=== PATIENT | male | born 1955 | race Caucasian/White ===

== ENCOUNTER → 2017-05-20 | Outpatient (REF) | payer MEDICARE ==
[2017-05-20 13:24] LABS: RHEUMATOID FACTOR QUANT < 10.0 IU/ML (0-15.0)
[2017-05-20 13:24] LABS: C REACTIVE PROTEIN QUANTITATIV 9.34 MG/DL (0.00-0.30)
[2017-05-20 13:47] LABS: ERYTHROCYTE SEDIMENTATION RATE 70 mm/hr (0-20)
== END ==
LOC: M LABDRAW1 12:09
DX: M54.5 Low back pain (principal)
CPT/HCPCS: 86140

== ENCOUNTER 2017-05-27 09:59 | Inpatient (IN) | payer MEDICARE ==
[2017-05-27 10:38] LABS: HEMATOCRIT 31.2 % (42.0-52.0); MEAN CORPUSCULAR HEMOGLOBIN 28.6 pg (27.0-33.0); MEAN CORPUSCULAR HGB CONC 32.1 g/dl (32.0-36.5); MEAN CORPUSCULAR VOLUME 89.1 fl (80.0-96.0); PLATELET COUNT, AUTOMATED 292 10^3/uL (150-450); RED CELL DISTRIBUTION WIDTH 17.9 % (11.5-14.5)
[2017-05-27 10:50] LABS: ADD MANUAL DIFFER YES; DIFF SLIDE NUMBER 174; POS COUNT POS FLAG; POSITIVE MORPH POS FLAG
[2017-05-27 10:51] LABS: ALBUMIN/GLOBULIN RATIO 0.64 (1.00-1.93); ALKALINE PHOSPHATASE 304 U/L (45-117); ALT/SGPT 12 U/L (12-78); ANION GAP 20 MEQ/L (8-16); AST/SGOT 42 U/L (7-37); BILIRUBIN,DIRECT 0.1 MG/DL (0.0-0.2); BILIRUBIN,TOTAL 0.3 MG/DL (0.2-1.0); CALCIUM LEVEL 9.2 MG/DL (8.8-10.2); CARBON DIOXIDE LEVEL 9 MEQ/L (21-32); CHLORIDE LEVEL 106 MEQ/L (98-107); CPK CREATINE PHOSPHOKINASE 667 U/L (39-308); GLOMERULAR FILTRATION RATE 3.5 (>49); GLUCOSE, FASTING 109 MG/DL (80-110); SODIUM LEVEL 135 MEQ/L (136-145); TOTAL PROTEIN 7.7 GM/DL (6.4-8.2); TROPONIN I < 0.02 NG/ML (< 0.10)
[2017-05-27 10:59] LABS: CK-MB VALUE MASS 9.4 NG/ML (0.0-3.6); NT-PRO BNP 19584 PG/ML (<125)
[2017-05-27 11:06] LABS: BLOOD UREA NITROGEN 199 MG/DL (7-18)
[2017-05-27 11:10] LABS: POTASSIUM SERUM 7.7 MEQ/L (3.5-5.1)
[2017-05-27 11:17] LABS: AMMONIA 24 uMOL/L (<32)
[2017-05-27 11:21] LABS: LACTIC ACID SEPSIS PROTOCOL 1.1 MMOL/L (0.4-2.0)
[2017-05-27 11:23] LABS: INR 1.68; PROTHROMBIN TIME 20.3 SECONDS (12.4-14.5)
[2017-05-27 11:24] LABS: PARTIAL THROMBOPLASTIN TIME 29.8 SECONDS (26.8-37.9)
[2017-05-27 11:29] LABS: ETHYL ALCOHOL (ETHANOL) 0.004 % (0.000-0.010)
[2017-05-27 11:29] LABS: SALICYLATE LEVEL 2.2 MG/DL (5.0-30.0)
[2017-05-27] MEDS ORDERED: CALCIUM CHLORIDE 10% 1 GM in D5W 100 ML IV (11:30)
[2017-05-27 11:31] LABS: ACETAMINOPHEN LEVEL < 2.0 UG/ML (10.0-30.0)
[2017-05-27] MEDS: CALCIUM CHLORIDE 10% 1 GM in D5W 100 ML IV (11:33)
[2017-05-27] MEDS: DEXTROSE 50% 50 ML SYRINGE IV (11:33)
[2017-05-27 11:34] LABS: ANISOCYTOSIS 1+; ATYPICAL LYMPH 4 % (0-5); BANDS 1 % (< 11); EOSINOPHILS 2 % (0-5); LYMPHOCYTES 9 % (16-52); METAMYELOCYTES 2 % (0-0); MONOCYTES 9 % (0-8); MYELOCYTES 1 % (0-0); NEUTROPHILS 72 % (35-75); PLATELET ESTIMATE NORMAL (NORMAL); POLYCHROMASIA 1+
[2017-05-27] MEDS: HumuLIN R (REGULAR) INSULIN (NovoLIN R) **100U/ML** PER UNIT IV (11:34)
[2017-05-27] MEDS: SOD POLYSTYRENE SULFONATE SUSP 15 GM/60 ML UD PO (11:34)
[2017-05-27] MEDS: NS 1,000 ML IV (11:35)
[2017-05-27 11:49] LABS: ABG BASE EXCESS -21.8 (-2.0-2.0); ABG HCO3 5.9 MEQ/L (22.0-26.0); ABG O2 SATURATION 96.4 % (95.0-99.0); ABG PARTIAL PRESSURE O2 96.9 mmHg (75.0-100.0); ABG STANDARD HCO3 8.4 MEQ/L (22.0-26.0); ABG TOTAL CO2 6.5 MEQ/L (23.0-31.0)
[2017-05-27 11:54] LABS: ABG PARTIAL PRESSURE CO2 19.2 mmHg (35.0-45.0); ABG pH (ARTERIAL) 7.106 UNITS (7.350-7.450)
[2017-05-27] MEDS: SODIUM BICARBONATE 8.4% INJ 50 ML SYRINGE IV ×3 (12:34→15:10)
[2017-05-27 12:36] LABS: KETONE, URINE AUTO RFX TRACE mg/dL (NEGATIVE); LEUKOCYTE ESTERASE UR AUTO RFX NEGATIVE (NEGATIVE); MUCUS, URINE RFX SMALL (NEGATIVE); NITRITE, URINE AUTO RFX NEGATIVE (NEGATIVE); RBC, URINE AUTO RFX 3 /HPF (0-3); SPECIFIC GRAVITY UR AUTO RFX 1.012 (1.002-1.035); SQUAM EPITHELIAL CELL UR AURFX 0 /HPF (0-6); WBC, URINE AUTO RFX 6 /HPF (0-3)
[2017-05-27 12:50] LABS: AMPHETAMINES LEVEL URINE NEGATIVE (NEGATIVE); BARBITURATES URINE NEGATIVE (NEGATIVE); BENZODIAZEPINES URINE NEGATIVE (NEGATIVE); CANNABINOIDS URINE NEGATIVE (NEGATIVE); COCAINE METABOLITE URINE NEGATIVE (NEGATIVE); METHADONE URINE NEGATIVE (NEGATIVE); OPIATES URINE POSITIVE (NEGATIVE); PHENCYCLIDINE URINE NEGATIVE (NEGATIVE)
[2017-05-27 12:51] LABS: SODIUM,RANDOM URINE 16 MEQ/L
[2017-05-27 13:01] LABS: OSMOLALITY URINE 367 MOSM/KG (500-800)
[2017-05-27 13:09] LABS: MAGNESIUM LEVEL 4.1 MG/DL (1.8-2.4)
[2017-05-27 13:09] LABS: PHOSPHORUS LEVEL 9.2 MG/DL (2.5-4.9)
[2017-05-27] MEDS: SODIUM BICARBONATE 100 MEQ in D5W 1,000 ML IV ×2 (13:12→20:04)
[2017-05-27] MEDS ORDERED: ONDANSETRON 4MG/2ML VIAL (J2405) IV (14:15)
[2017-05-27 14:24] LABS: OSMOLALITY SERUM 362 MOSM/KG (280-301)
[2017-05-27 14:38] LABS: ANION GAP 22 MEQ/L (8-16); CALCIUM LEVEL 9.3 MG/DL (8.8-10.2); CARBON DIOXIDE LEVEL 9 MEQ/L (21-32); CHLORIDE LEVEL 107 MEQ/L (98-107); FREE THYROXINE INDEX 1.1 % (1.4-3.8); GLOMERULAR FILTRATION RATE 3.4 (>49); GLUCOSE, FASTING 98 MG/DL (80-110); SODIUM LEVEL 138 MEQ/L (136-145); T UPTAKE 32 % (33-40); THYROXINE (T4) 3.4 UG/DL (4.5-12.0)
[2017-05-27 14:50] LABS: POTASSIUM SERUM 7.4 MEQ/L (3.5-5.1)
[2017-05-27 14:51] LABS: BLOOD UREA NITROGEN 209 MG/DL (7-18)
[2017-05-27 14:59] LABS: BEDSIDE GLUCOSE 114 MG/DL (80-115)
[2017-05-27 16:27] LABS: ABG BASE EXCESS -16.1 (-2.0-2.0); ABG HCO3 8.6 MEQ/L (22.0-26.0); ABG PARTIAL PRESSURE O2 91.6 mmHg (75.0-100.0); ABG TOTAL CO2 9.1 MEQ/L (23.0-31.0)
[2017-05-27 16:32] LABS: ABG PARTIAL PRESSURE CO2 18.2 mmHg (35.0-45.0); ANION GAP 21 MEQ/L (8-16); CARBON DIOXIDE LEVEL 11 MEQ/L (21-32); CHLORIDE LEVEL 106 MEQ/L (98-107); CK-MB VALUE MASS 9.5 NG/ML (0.0-3.6); CPK CREATINE PHOSPHOKINASE 886 U/L (39-308); GLOMERULAR FILTRATION RATE 3.5 (>49); GLUCOSE, FASTING 130 MG/DL (80-110); MB/CK RELATIVE INDEX 1.07 (< OR =4); SODIUM LEVEL 138 MEQ/L (136-145); TROPONIN I 0.02 NG/ML (< 0.10)
[2017-05-27 16:51] LABS: BLOOD UREA NITROGEN 203 MG/DL (7-18); POTASSIUM SERUM 6.6 MEQ/L (3.5-5.1)
[2017-05-27 18:07] LABS: BEDSIDE GLUCOSE 148 MG/DL (80-115)
[2017-05-27 19:17] LABS: ANION GAP 20 MEQ/L (8-16); BLOOD UREA NITROGEN 203 MG/DL (7-18); CALCIUM LEVEL 8.8 MG/DL (8.8-10.2); CARBON DIOXIDE LEVEL 11 MEQ/L (21-32); CHLORIDE LEVEL 108 MEQ/L (98-107); GLOMERULAR FILTRATION RATE 3.5 (>49); GLUCOSE, FASTING 125 MG/DL (80-110); SODIUM LEVEL 139 MEQ/L (136-145)
[2017-05-27 19:39] LABS: POTASSIUM SERUM 6.2 MEQ/L (3.5-5.1)
[2017-05-27] MEDS: PANTOPRAZOLE 40MG INJ (PROTONIX) (C9113) IV (20:03)
[2017-05-27] MEDS: BISOPROLOL FUMARATE 5 MG TAB PO (20:09)
[2017-05-27] MEDS: HEPARIN SOD (PORCINE) 5000 UNITS/ML VIAL SC (20:09)
[2017-05-27 20:50] LABS: ANION GAP 23 MEQ/L (8-16); BLOOD UREA NITROGEN 202 MG/DL (7-18); CALCIUM LEVEL 8.8 MG/DL (8.8-10.2); CARBON DIOXIDE LEVEL 11 MEQ/L (21-32); CHLORIDE LEVEL 106 MEQ/L (98-107); GLOMERULAR FILTRATION RATE 3.5 (>49); GLUCOSE, FASTING 134 MG/DL (80-110); SODIUM LEVEL 140 MEQ/L (136-145)
[2017-05-27 20:54] LABS: POTASSIUM SERUM 5.8 MEQ/L (3.5-5.1)
[2017-05-27] MEDS ORDERED: DRONEDARONE 400 MG TAB (MULTAQ) PO (21:00)
[2017-05-28] MEDS ORDERED: CLOPIDOGREL 75 MG TAB PO (09:00)
[2017-05-28] MEDS ORDERED: ASPIRIN 81 MG ENTERIC TAB PO (09:00)
== END 2017-05-27 22:00 | disposition short-term general hospital (02) | DRG 682 ==
LOC: M ED 09:59 → M ED INP 15:18 → M ICU 18:52
DX: N17.9 Acute kidney failure, unspecified (principal); G93.40 Encephalopathy, unspecified; C79.51 Secondary malignant neoplasm of bone; E87.2 Acidosis; N13.30 Unspecified hydronephrosis; M54.5 Low back pain; Z95.0 Presence of cardiac pacemaker; I25.10 Atherosclerotic heart disease of native coronary artery without angina pectoris; E87.5 Hyperkalemia; Z79.82 Long term (current) use of aspirin; Z79.899 Other long term (current) drug therapy; I25.2 Old myocardial infarction; E78.5 Hyperlipidemia, unspecified; R00.0 Tachycardia, unspecified; R33.9 Retention of urine, unspecified; Z87.891 Personal history of nicotine dependence